=== PATIENT | male | born 1985 | race Caucasian/White ===

== ENCOUNTER 2019-06-12 17:07 | Emergency (ER) | payer SELFPAY ==
[2019-06-12 17:17] VITALS: BP 167/113
[2019-06-12] MEDS ORDERED: Lidocaine 2% VISCOUS* 15 ML UDC SWISH SPIT ONE (17:53)
[2019-06-12] MEDS ORDERED: HYDROcodone/ACETAMIN 5-325 MG* 1 TAB PO ONE ×2 (17:56→17:59)
[2019-06-12] MEDS ORDERED: Amoxicillin PO (*) 500 MG CAP PO ONE (17:58)
[2019-06-12] MEDS: Amoxicillin PO (*) 500 MG CAP PO ONE ×2 (18:19→18:23)
--- NOTE | 2019-06-30 22:23 | UC ---
Dental HPI - HPI Summary HPI Summary: 34 year old male with lower left tooth pain for 2-3 days. no fever, no chills. Was seen at [place] [facility], given one dose of PCN IV, has not picked up prescription. No fever, no chills. + swelling. H/O poor dentation in the past. - History of Current Complaint Chief Complaint: UCDentalProblem Stated Complaint: DENTAL Time Seen by Provider: 06/12/19 17:43 Hx Obtained From: Patient Onset/Duration: Sudden Onset, Lasting Days - 3 days Severity: Severe Pain Intensity: 7 Pain Scale Used: 0-10 Numeric - Allergies/Home Medications Allergies/Adverse Reactions: Allergies Allergy/AdvReac Type Severity Reaction Status Date / Time codeine Allergy GI Upset Verified 06/12/19 17:17 Home Medications: Home Medications Amoxicillin PO (*) [Amoxicillin 500 MG CAP*] 500 mg PO TID #30 cap 06/12/19 [Rx] HYDROcodone/ACETAMIN 5-325 MG* [[place] 5-325 TAB*] 1 tab PO Q4H PRN #10 tab MDD 6 06/12/19 [Rx] Ibuprofen TAB* [Motrin TAB* 800 MG] 1 tab PO TID 06/12/19 [History Confirmed 11/23] Lidocaine 2% VISCOUS* [Xylocaine 2% Viscous*] 10 ml TOPICAL Q4H PRN #1 btl 06/11 [Rx] PMH/Surg Hx/FS Hx/Imm Hx Previously Healthy: Yes - Surgical History Surgical History: None Surgery Procedure, Year, and Place: none - Family History Known Family History: Positive: None, Non-Contributory - Social History Occupation: Employed Part-time Alcohol Use: None Substance Use Type: Marijuana Substance Use Comment - Amount & Last Used: 3-4x per week Smoking Status (MU): Current Every Day Smoker Type: Cigarettes Amount Used/How Often: 1 ppd Length of Time of Smoking/Using Tobacco: 13 years old Have You Smoked in the Last Year: Yes Review of Systems All Other Systems Reviewed And Are Negative: Yes Constitutional: Positive: Fatigue Skin: Positive: Negative ENT: Positive: Dental Pain Neurological/Mental Status: Positive: Headache Psychological: Positive: Negative Is Patient Immunocompromised?: No Physical Exam Triage Information Reviewed: Yes Appearance: Well-Nourished, Pain Distress - moderate Vital Signs: Initial Vital Signs Temp 98.2 F 06/12/19 17:13 Pulse 96 06/12/19 17:13 Resp 18 06/12/19 17:13 BP 167/113 06/12/19 17:13 Pulse Ox 100 06/12/19 17:13 Vital Signs Reviewed: Yes Eyes: Positive: Conjunctiva Clear ENT: Positive: Pharynx normal, Sinus tenderness, Uvula midline. Negative: Pharyngeal erythema, Tonsillar swelling, Tonsillar exudate, Trismus Dental: Positive: Dental Fracture @ - multiple, Other: - no abscess. Negative: Abscess @ Neck: Positive: Supple, Tenderness @ - submandibular tenderness bl Respiratory: Positive: Chest non-tender, Lungs clear, Normal breath sounds, No respiratory distress, No accessory muscle use Musculoskeletal Exam: Normal Neurological Exam: Normal Psychological Exam: Normal Skin Exam: Normal Dental Complaint Course/Dx - Course Course Of Treatment: - [place] as needed every 6 hours for pain - Motrin 800mg every 8 hours for pain - VIscous lidocaine for pain as needed - Continue antibiotics for 10 days - Make dental appointment for likely extraction - Go to ER with difficulty swallowing, fever - Differential Dx/Diagnosis Differential Diagnosis/Dx: Peridontic Disease, Peritonsillar Abcess Provider Diagnosis: Toothache Discharge ED - Sign-Out/Discharge Documenting (check all that apply): Patient Departure All imaging exams completed and their final reports reviewed: No Studies - Discharge Plan Condition: Good Disposition: HOME Prescriptions: Amoxicillin PO (*) [Amoxicillin 500 MG CAP*] 500 mg PO TID #30 cap HYDROcodone/ACETAMIN 5-325 MG* [[place] 5-325 TAB*] 1 tab PO Q4H PRN #10 tab MDD 6 PRN Reason: Pain - Mild Lidocaine 2% VISCOUS* [Xylocaine 2% Viscous*] 10 ml TOPICAL Q4H PRN #1 btl PRN Reason: Pain - Mild Patient Education Materials: Toothache (ED) Forms: *Work Release Referrals: [facility] [Outside] No Primary Care Phys,NOPCP [Primary Care Provider] - Additional Instructions: - [place] as needed every 6 hours for pain - Motrin 800mg every 8 hours for pain - VIscous lidocaine for pain as needed - Continue antibiotics for 10 days - Make dental appointment for likely extraction - Go to ER with difficulty swallowing, fever - Billing Disposition and Condition Condition: GOOD Disposition: Home
== END 2019-06-12 18:29 | disposition home or self-care (01) ==
LOC: UCEAST 17:07
DX: K08.89 Other specified disorders of teeth and supporting structures (principal); R22.0 Localized swelling, mass and lump, head; F17.210 Nicotine dependence, cigarettes, uncomplicated; Z88.5 Allergy status to narcotic agent
CPT/HCPCS: 99203; A9270-GY; G0463